=== PATIENT | male | born 1990 | race American Indian/Alaskan Native ===

== ENCOUNTER 2016-08-24 18:32 | Emergency (ER) | payer SELFPAY ==
[2016-08-24 20:02] VITALS: BP 122/86
--- NOTE | 2016-08-28 01:05 | ED Elopement Review ---
ED Pt Elopement review - Call Back decision Pt Call Back Decision: Pt to F/U with PMD
== END 2016-08-24 23:53 | disposition left against medical advice (07) ==
LOC: EDSEX → ED 18:32
DX: S61.552A Open bite of left wrist, initial encounter (principal); S61.259A Open bite of unspecified finger without damage to nail, initial encounter; Z53.21 Procedure and treatment not carried out due to patient leaving prior to being seen by health care provider; W50.3XXA Accidental bite by another person, initial encounter; Y93.9 Activity, unspecified; Y92.9 Unspecified place or not applicable; Y99.9 Unspecified external cause status

== ENCOUNTER 2017-02-10 18:09 | Emergency (ER) | payer OTHER ==
[2017-02-10 20:44] LABS: Basophils % (Auto) 0.5 % (0.0-1.8); Eosinophils % (Auto) 0.5 % (0.0-4.3); Hemoglobin 12.1 gm/dl (10.1-14.3); Mean Corpuscular HGB Conc 32 % (30-34); Mean Corpuscular Volume 75 fl (79-97); Platelet Count 234 K/mm3 (140-440); Red Blood Count 5.04 M/mm3 (3.65-5.03); Red Cell Distribution Width 15.4 % (13.2-15.2); White Blood Count 14.6 K/mm3 (4.5-11.0)
[2017-02-10 20:51] LABS: Mean Corpuscular Hemoglobin 24 pg (28-32)
--- NOTE | 2017-02-10 21:49 | Ultrasound Report ---
FINAL REPORT EXAM: US OB < = 14 WEEKS FETUS HISTORY: Vaginal bleeding COMPARISON: None available. TECHNIQUE: Several real-time grayscale and color Doppler images were obtained. Transabdominal and transvaginal exam. FINDINGS: Uterus measures 9.3 x 5.4 x 6.1 centimeters. The right ovary measures 3.3 x 3.2 x 2.6 centimeters. Left ovary measures 3.0 x 2.9 x 2.0 centimeters. Single live IUP. Estimated gestational age 7 weeks 5 days. Estimated delivery date September 24, 2017. heart rate 144 beats per minute. Gross vascular flow to the ovaries. Trace fluid in the pelvis. IMPRESSION: Single live IUP. Estimated gestational age 7 weeks 5 days. Estimated delivery date September 24, 2017.
--- NOTE | 2017-02-10 21:49 | Ultrasound Report ---
FINAL REPORT EXAM: US OB TRANSVAGINAL HISTORY: Vaginal bleeding COMPARISON: None available. TECHNIQUE: Several real-time grayscale and color Doppler images were obtained. Transabdominal and transvaginal exam. FINDINGS: Uterus measures 9.3 x 5.4 x 6.1 centimeters. The right ovary measures 3.3 x 3.2 x 2.6 centimeters. Left ovary measures 3.0 x 2.9 x 2.0 centimeters. Single live IUP. Estimated gestational age 7 weeks 5 days. Estimated delivery date September 24, 2017. heart rate 144 beats per minute. Gross vascular flow to the ovaries. Trace fluid in the pelvis. IMPRESSION: Single live IUP. Estimated gestational age 7 weeks 5 days. Estimated delivery date September 24, 2017.
[2017-02-11 05:39] VITALS: BP 118/50
[2017-02-11 08:18] LABS: Bilirubin,Urine NEG (Negative); Blood,Urine LG (Negative); Ketones,Urine TR mg/dL (Negative); Leukocyte Esterase,Urine NEG (Negative); Mucus,Urine 2+ /HPF; Nitrite,Urine NEG (Negative); Protein,Urine <15 mg/dL mg/dL (Negative); Urobilinogen,Urine < 2.0 mg/dL (<2.0)
--- NOTE | 2017-02-11 08:47 | Emergency Department Report ---
ED HPI - General Chief complaint: Vaginal Bleeding Stated complaint: VAG BLEEDING Time Seen by Provider: 02/11/17 07:58 Source: patient Mode of arrival: Ambulatory Limitations: No Limitations - History of Present Illness MD Complaint: vaginal bleeding -: Gradual Quality: other (no pain) Consistency: intermittent Improves with: none Worsens with: none Associated symptoms: vaginal bleeding. denies: nausea/vomiting, vaginal discharge, abdominal pain, dysuria, headache, vision changes, malaise, dysparuenia, rash, seizure, shortness of breath, syncope, weakness Vaginal bleeding: light :: Yes - Related Data : 1 Allergies Allergy/AdvReac Type Severity Reaction Status Date / Time Penicillins Allergy Hives Verified 02/10/17 19:46 ED Review of Systems ROS: Stated complaint: VAG BLEEDING Other details as noted in HPI Comment: All other systems reviewed and negative Genitourinary: other (vag bleed preg; ; no pain; no ob care yet) ED Past Medical Hx - Past Medical History Previous Medical History?: No Additional medical history: inguinal hernia - Surgical History Past Surgical History?: Yes Additional Surgical History: inguinal hernia repair (childhood) / LIPOSUCTION, Ear Nose and Throat surgery - Social History Smoking Status: Never Smoker Substance Use Type: None ED Physical Exam - General Limitations: No Limitations General appearance: alert - Head Head exam: Present: atraumatic - Eye Eye exam: Present: PERRL - ENT ENT exam: Present: mucous membranes moist - Neck Neck exam: Present: normal inspection - Respiratory Respiratory exam: Present: normal lung sounds bilaterally - Cardiovascular Cardiovascular Exam: Present: regular rate - GI/Abdominal GI/Abdominal exam: Present: soft - Rectal Rectal exam: Present: deferred - External exam: Present: normal external exam Speculum exam: Present: vaginal bleeding, other (os closed) - Extremities Exam Extremities exam: Present: normal inspection - Back Exam Back exam: Present: normal inspection, full ROM. Absent: tenderness, CVA tenderness (R), CVA tenderness (L) - Neurological Exam Neurological exam: Present: alert, oriented X3 - Psychiatric Psychiatric exam: Present: normal affect, normal mood, anxious - Skin Skin exam: Present: warm, dry, intact ED Course Vital Signs 02/10/17 02/10/17 02/10/17 19:25 19:51 22:43 Temperature 98.3 F 98.3 F 98.5 F Pulse Rate 81 79 71 Respiratory 18 18 14 Rate Blood Pressure 120/73 120/73 124/61 O2 Sat by Pulse 98 97 100 Oximetry 02/11/17 05:38 Temperature 98.8 F Pulse Rate 77 Respiratory 14 Rate Blood Pressure 118/50 O2 Sat by Pulse 97 Oximetry - Reevaluation(s) Reevaluation #1: 02/11/17 to er w known preg vag bleed no pain no dysuria no concern std ambulatory nontoxic no fever light w urination g1 labs noted rhpos h/h good- hr 88 us noted cardiac activity os closed discussed ab and vag bleed w preg w pt. will see ob in am for repeat hcg and check of car activity verbalizes understanding dc hr 88, bp 120/ 80 no fever Reevaluation #2: 02/11/17 08:[address] CARYN MARTINS HOME FU IN AM ua noted- slight inc in wbc ? stress response no s/s infection no cough/urti no abd pain no dysuria discussed on dc w pt will fu in am. dc home taking po ambulatory ED Medical Decision Making - Lab Data Result diagrams: 02/10/17 20:14 - Radiology Data Radiology results: report reviewed, image reviewed - Medical Decision Making see note - Differential Diagnosis ro ab Critical care attestation.: If time is entered above; I have spent that time in minutes in the direct care of this critically ill patient, excluding procedure time. ED Disposition Clinical Impression: , Vaginal bleeding Disposition: DC- TO HOME OR SELFCARE Is pt being admited?: No Does the pt Need Aspirin: No Condition: Stable Additional Instructions: pelvic rest FOLLOW UP OB SUNDAY LET HIM KNOW SEEN HERE AND THEY CAN PULL RESULTS OF ULTRASOUND AND BLOOD WORK RH POS Referrals: PRIMARY CARE, [Primary Care Provider] - 3-5 Days KENNEY DICKEY MD [Staff Physician] - 3-5 Days Time of Disposition: 08:45
== END 2017-02-11 09:00 | disposition home or self-care (01) ==
LOC: EDSEX → ED 18:09
DX: O46.91 Antepartum hemorrhage, unspecified, first trimester (principal); Z3A.01 Less than 8 weeks gestation of pregnancy; Z88.0 Allergy status to penicillin
CPT/HCPCS: 36415; 76801; 76817; 81001; 84702; 85025; 86850; 86900; 86901; 99284